=== PATIENT | female | born 1965 | race Caucasian/White ===

== ENCOUNTER 2016-06-21 10:28 | Emergency (ER) | payer MEDICAID, MEDICARE ==
[~2016-06-21] VITALS: Ht 167.6 cm; Wt 75.0 kg
[~2016-06-21 10:28] MED LIST: GABA300C PO; LIT300 PO; SERT-165 PO; TRAZ100T15 PO
[2016-06-21 10:29] VITALS: Ht 167.6 cm; Wt 75.0 kg
[2016-06-21] MEDS ORDERED: LORAZEPAM 2 MG INJ IM ONE (11:00)
--- NOTE | 2016-06-21 11:23 | ERD ---
ER Documentation Chief Complaint Date/Time DATE: 06/21/16 TIME: 11:20 Chief Complaint anxiety started last night feeling shakey hx of panic attacks HPI This is a 51-year-old female presenting to the emergency department with a history of COPD, neuropathy, depression and psych disorder presenting complaining of anxiety attack since 930 this morning t. Patient states that she felt as if her right hand started getting numb and started having dry mouth. Patient states that she feels as if her symptoms are getting better since it happened. Patient states that t she has had a panic attack in the past before. Patient takes Zoloft, lithium, MS Contin, Neurontin. Patient states that she has a psychiatrist that she is going to follow-up with. Patient denies any shortness of breath or chest pain ROS All systems reviewed and are negative except as per history of present illness. Medications Home Meds Reported Medications Trazodone Hcl* (Trazodone Hcl*) 100 Mg Tablet, 100 MG PO HS, TAB 09/07/14 Sertraline Hcl* (Sertraline Hcl*) 100 Mg Tablet, 200 MG PO AM, TAB 03/14/14 [place] Carbonate* ([place]*) 300 Mg Cap, 600 MG PO HS, CAP 11/05/13 Gabapentin* (Neurontin*) 300 Mg Capsule, 900 MG PO TID, CAP 11/05/13 Allergies Allergies: Coded Allergies: No Known Allergy (Unverified , 09/07/14) PMhx/Soc Medical and Surgical Hx: pt denies Medical Hx, pt denies Surgical Hx History of Surgery: Yes (Hysterectectomy 2004-ovarian cyst 6x,appendectomy 2000 ) Anesthesia Reaction: No Hx Neurological Disorder: Yes (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) Hx Respiratory Disorders: Yes Hx Cardiac Disorders: No Hx Psychiatric Problems: Yes (depression) Hx Miscellaneous Medical Probl: No Hx Alcohol Use: No Hx Substance Use: No Hx Tobacco Use: Yes Smoking Status: Current every day smoker Physical Exam Vitals Vital Signs Date Time Temp Pulse Resp B/P Pulse Ox O2 Delivery O2 Flow Rate FiO2 06/21/16 10:29 98.2 100 20 160/80 98 Physical Exam GENERAL: well-developed/well-nourished, in no apparent distress, non-toxic appearing HENT: NC/AT, bilateral tympanic membrane is normal with good cone of light, nares patent, oropharynx clear without exudates EYES: Conjunctiva normal, PERRLA, EOMI, no nystagmus noted NECK: Supple, no lymphadenopathy PULM: CTA bilaterally, no rales, rhonchi, or wheezing heard CV: Normal S1S2, RRR, good capillary refill GI: Soft, non-distended, normal bowel sounds, non-tender BACK: No midline tenderness, no masses, No CVAT EXT: No clubbing, cyanosis, or edema NEURO: Alert and orientated to person, place, and time. CN II-IIX intact. Gait and coordination were normal. Hand tobacco shaker strength were equal and within normal limits SKIN: Intact, normal turgor PSYCH: Normal mood and mentation, patient denied SI Results 24 hrs Current Medications Medications (Trade) Dose Ordered Sig/Erick Route PRN Reason Start Time Stop Time Status Last Admin Dose Admin Lorazepam (Ativan) 1 mg ONCE ONCE IM 06/21/16 11:00 06/21/16 11:01 DC 06/21/16 11:08 Procedures/MDM This is a 51-year-old female with known psych conditions presenting to the emergency room with symptoms most consistent with an anxiety pr panic attack since 930 this morning. . Differentials include infection, cardiac diseases, pulmonary diseases, hyperthyroidism/hypothyroidism, myocardial infarction, endocrine or metabolic disease, nerve compression. nutritional deficiency, multiple sclerosis, Guillain[place] syndrome, substance abuse. Clinically, patient appears anxious. Patient states that she is feeling a lot better but still has shakiness from anxiety. In the ED patient was given 1 mg of Ativan and had significant improvement. EKG was done in the ER and was unremarkable for STEMI. Patient states that she will follow-up with her psychiatrist. Patient is stable. Neurovascularly intact. Discussed to return to the ER if condition worsens or not improving as expected. Patient understood and agreed with this plan. EKG: read and signed off by myself and Dr. jarrell Rate/Rhythm: Sinus bradycardia at 59 bpm QRS, ST, T-waves: No changes consistent w/ acute ischemia Impression: No evidence of ischemia or arrhythmia Departure Diagnosis: Primary Impression: Anxiety Condition: Stable Patient Instructions: Your Body's Response to Anxiety, Anxiety Reaction Referrals: SHALONDA MCKEON MD (PCP) Additional Instructions: FOLLOW UP WITH YOUR PRIMARY CARE PHYSICIAN TOMORROW.Return to this facility if you are not improving as expected. Return to this facility if you are not improving as expected. ASPEN BURNETT PA-C Jun 21, 2016 11:22
== END 2016-06-21 12:13 | disposition home or self-care (01) ==
LOC: FTE 10:28
DX: F41.9 Anxiety disorder, unspecified (principal); J44.9 Chronic obstructive pulmonary disease, unspecified; F17.210 Nicotine dependence, cigarettes, uncomplicated; R00.1 Bradycardia, unspecified
CPT/HCPCS: 93005; J2060; 96372